=== PATIENT | female | born 1945 | race African-American/Black ===

== ENCOUNTER 2016-12-03 16:24 | Emergency (ER) | payer SELFPAY ==
[~2016-12-03] VITALS: Ht 167.6 cm; Wt 83.9 kg
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
--- NOTE | 2016-12-03 17:07 | NUR ---
PT HAVE AN ABRASION ON THE LEFT ELBOW, CLEANED WITH NS, PAT DRY, APPLIED NEOSPORIN ORDERED. COVERED WITH NON-ADHERENT DRESSING AND COBAN.
--- NOTE | 2016-12-03 17:10 | NUR ---
Patient discharged to home in stable conditon. Written and verbal after care instructions given. Patient verbalizes understanding of instructions. No further questions or concerns noted prior on leaving the ED.
[2016-12-03] MEDS ORDERED: NEOMY/BACITRA/POLYMYXIN B OINT UD PACKET TP ONE ×2 (17:15→17:17)
[2016-12-03] MEDS ORDERED: KETOROLAC TROMETHAMINE 30 MG INJ IM ONE (17:15)
[2016-12-03] MEDS ORDERED: KETOROLAC TROMETHAMINE 30 MG INJ ONE (17:28)
--- NOTE | 2016-12-03 17:47 | NUR ---
PT TOLERATED TORADOL MEDICATION. NO REACTION NOTED. AND IS STABLE FOR D/C PER MD ECHAVARRIA.
[2016-12-03 17:48] VITALS: BP 155/74
== END 2016-12-03 18:07 | disposition home or self-care (01) ==
LOC: ER 16:26
DX: S20.219A Contusion of unspecified front wall of thorax, initial encounter (principal); E78.00 Pure hypercholesterolemia, unspecified; I10 Essential (primary) hypertension; E11.9 Type 2 diabetes mellitus without complications; V89.2XXA Person injured in unspecified motor-vehicle accident, traffic, initial encounter; W22.10XA Striking against or struck by unspecified automobile airbag, initial encounter; Y93.89 Activity, other specified; Y92.89 Other specified places as the place of occurrence of the external cause; Y99.8 Other external cause status
CPT/HCPCS: 71010; 93005; A4217; A4663; J1885